=== PATIENT | male | born 1990 | race Caucasian/White ===

== ENCOUNTER 2017-07-24 12:04 | Emergency (ER) | payer OTHER ==
[~2017-07-24] VITALS: Ht 177.8 cm; Wt 127.2 kg
[~2017-07-24 12:04] MED LIST: ANTIVERT25 MG PO; CLARITIN10 MG PO; NO HOME MEDS; VICODIN 5-3001 EACH PO
[2017-07-24 13:07] LABS: HEMATOCRIT 45.5 % (38.0-50.0); MCHC 33.6 G/DL (30.0-36.0); MCV 86.3 FL (86-99); MEAN PLAT.VOLUME 11.1 uM^3 (9.0-12.4); PLATELET COUNT 265 K/uL (156-360); RBC DIS.WIDTH-CV 12.7 % (11.8-14.6); RBC DIS.WIDTH-SD 39.9 % (39-53); RED BLOOD COUNT 5.27 M/uL (4.00-5.50); WHITE BLOOD COUNT 16.8 K/uL (4.1-10.2)
[2017-07-24 13:19] LABS: CHLORIDE 108 mEq/L (99-109); SODIUM 140 mEq/L (136-147)
[2017-07-24 13:20] LABS: GLUCOSE 135 mg/dL (70-99)
[2017-07-24 13:22] LABS: ANION GAP 7 MEQ/L (2-14)
[2017-07-24 13:24] LABS: GFR ESTIMATE (CALCULATED) > 59 mL/min/
[2017-07-24 13:25] LABS: UREA NITROGEN (BUN) 20 mg/dL (9-23)
[2017-07-24 14:39] LABS: BASOPHIL COUNT 0.1 K/uL (0-0.1); EOSINOPHIL (%) 0.1 % (0-5); HEMATOCRIT 47.3 % (38.0-50.0); IMMATURE GRANULOCYTE (%) 0.6 % (0.0-0.7); IMMATURE GRANULOCYTE COUNT 0.1 K/uL; INSTRUMENT ABS NEUTROPHIL CT 20.8 K/uL; LYMPHOCYTE COUNT 1.1 K/uL (1.0-2.8); MCH 28.7 PG (29.0-34.0); MCV 87.1 FL (86-99); MEAN PLAT.VOLUME 11.1 uM^3 (9.0-12.4); MONOCYTE COUNT 0.9 K/uL (0-0.8); NEUTROPHIL (%) 90.4 % (45-76); NEUTROPHIL COUNT 20.8 K/uL (1.8-6.4); PLATELET COUNT 227 K/uL (156-360); RBC DIS.WIDTH-CV 12.9 % (11.8-14.6); RBC DIS.WIDTH-SD 40.2 % (39-53); RED BLOOD COUNT 5.43 M/uL (4.00-5.50)
[2017-07-24 14:50] LABS: CHLORIDE 107 mEq/L (99-109); POTASSIUM 4.4 mEq/L (3.7-5.4); SODIUM 138 mEq/L (136-147)
[2017-07-24 14:52] LABS: GLUCOSE 114 mg/dL (70-99)
[2017-07-24 14:53] LABS: ANION GAP 7 MEQ/L (2-14)
[2017-07-24 14:54] LABS: TOTAL BILIRUBIN 0.4 mg/dL (0.0-1.0)
[2017-07-24 14:56] LABS: ALKALINE PHOSPHATASE 106 IU/L (3-129); GFR ESTIMATE (CALCULATED) > 59 mL/min/
[2017-07-24 14:57] LABS: UREA NITROGEN (BUN) 18 mg/dL (9-23)
[2017-07-24] MEDS ORDERED: ZITHROMAX Z-PA250 MG PO (17:16)
[2017-07-24] MEDS ORDERED: PROVENTIL HFA6.7 GM IH (17:16)
[2017-07-24 17:55] VITALS: BP 123/98
== END 2017-07-24 17:57 | disposition home or self-care (01) ==
LOC: EME 12:04
PROVIDERS: Emergency Medicine
DX: T40.2X1A Poisoning by other opioids, accidental (unintentional), initial encounter (principal); J18.9 Pneumonia, unspecified organism; F17.200 Nicotine dependence, unspecified, uncomplicated; J45.909 Unspecified asthma, uncomplicated; F32.9 Major depressive disorder, single episode, unspecified; Z88.0 Allergy status to penicillin
CPT/HCPCS: 71020; 71275; 80048; 80053; 80164; 85025; 85027; 87040; 99281; 99285; J1956; J2310; J7120

== ENCOUNTER 2017-07-24 22:08 | Emergency (ER) | payer OTHER ==
[~2017-07-24] VITALS: Ht 177.8 cm; Wt 132.6 kg
[~2017-07-24 22:08] MED LIST changes: +PROVENTIL HFA6.7 GM IH; +ZITHROMAX Z-PA250 MG PO
[2017-07-24 22:12] VITALS: BP 133/85
[2017-07-24 23:18] LABS: MCH 28.8 PG (29.0-34.0); MCHC 33.3 G/DL (30.0-36.0); MCV 86.5 FL (86-99); PLATELET COUNT 227 K/uL (156-360); RBC DIS.WIDTH-CV 12.9 % (11.8-14.6); RBC DIS.WIDTH-SD 40.2 % (39-53); WHITE BLOOD COUNT 27.1 K/uL (4.1-10.2)
[2017-07-24 23:33] LABS: CHLORIDE 101 mEq/L (99-109); POTASSIUM 4.1 mEq/L (3.7-5.4); SODIUM 136 mEq/L (136-147)
[2017-07-24 23:35] LABS: GLUCOSE 104 mg/dL (70-99)
[2017-07-24 23:37] LABS: ANION GAP 11 MEQ/L (2-14)
[2017-07-24 23:39] LABS: GFR ESTIMATE (CALCULATED) > 59 mL/min/
[2017-07-24 23:40] LABS: UREA NITROGEN (BUN) 14 mg/dL (9-23)
== END 2017-07-25 02:31 | disposition left against medical advice (07) ==
LOC: EME 22:08
DX: R06.9 Unspecified abnormalities of breathing (principal); Z53.21 Procedure and treatment not carried out due to patient leaving prior to being seen by health care provider
CPT/HCPCS: 80048 91; 85027